=== PATIENT | female | born 1975 | race Caucasian/White ===

== ENCOUNTER 2016-06-16 23:58 | Emergency (ER) | payer MEDICAID ==
[~2016-06-16 23:58] MED LIST: AMOXIL500 M PO; ASPIRIN81 MG PO; ATIVAN1 MG PO; BAYER CHILDREN'81 MG PO; BAYER81 MG PO; BENADRYL25 MG PO; BENADRYL25 MG/TA1 PO; BENTROPINE PO; BENZTROPINE MESY1 MG PO; BL MAXEPA CAPSU1 CAP PO; CEBERCLON1 MG PO; CELEXA PO; CELEXA40 MG PO; CLONAZEPAM1 M1 PO; CLONAZEPAM1 M2 PO; CLONAZEPAM1 MG PO; COGENTIN1 MG/TA1 PO; DIPHENOXYLATE 2.1 EA PO; FIBER PILL PO; FIBER THERAPY PO; FIBER THERAPY500 M1 PO; FUROSEMIDE20 M1 PO; IBUPROFEN800 MG PO; IRON325 ( 65 ) PO; KEFLEX500 M4 PO; LAMICTAL150 MG PO; LAMICTAL200 M1 PO; LAMICTAL200 M2 PO; LAMICTAL200 MG PO; LASIX20 MG PO; LEVOXYL50 MCG PO; LORAZEPAM1 M1 PO; LORAZEPAM1 MG PO; LOW DOSE ASPIRI81 M2 PO; MOTRIN800 MG PO; NAPROSYN500 MG PO; NEOMYCIN POLYMY OT; NORCO 10/325 TA1 TAB PO; NORCO 5-325 TA1 EACH PO; NORCO 5/325 TAB1 TAB PO; NORFLEX PO; NYSTATIN1 EAC1 MC; NYSTATIN1 EACH MC; NYSTATIN10 GM PO; NYSTOP TP; NYSTOP15 GM TP; PROMETHAZINE V240 ML PO; PROMETHAZINE25 MG PO; RANITIDINE HCL150 MG PO; RASPBERRY KETONES PO; SEROQUEL XR300 MG PO; SEROQUEL200 MG PO; SEROQUEL25 MG PO; SEROQUEL400 MG PO; SEROQUEL50 M1 PO; SEROQUEL50 MG PO; SYNTHROID50 MCG PO; TRAMADOL HCL50 MG PO; TUMS CALCIUM F750 MG PO; TYLENOL325 MG PO; ULTRAM50 MG PO; WATER PILL PO; ZANTAC150 MG PO; ZITHROMAX250 MG PO; ZOFRAN ODT4 MG/UDTAB PO; [UNRECOGNIZED DRUG - OTHER]; [UNRECOGNIZED DRUG - OTHER] PO; [UNRECOGNIZED DRUG - REMARK]; [UNRECOGNIZED DRUG - REMARK] PO
[2016-06-17] MEDS ORDERED: CIPRO HC OTIC S10 M1 EACH EAR (00:19)
[2016-06-17] MEDS ORDERED: [UNRECOGNIZED DRUG - OTHER] (00:20)
[2016-06-17] MEDS ORDERED: HYDROCODON-ACE1 EA16 PO (00:23)
[2016-06-17] MEDS ORDERED: CALCIUM + VITA1 EAC4 PO (00:24)
[2016-06-17] MEDS ORDERED: COCONUT OIL1000 M1 PO (00:25)
[2016-06-17] MEDS ORDERED: ALIVE WOMEN'S1 EAC1 PO (00:25)
[2016-06-17] MEDS ORDERED: PROAIR HFA8.5 GM INH (02:26)
[2016-06-17] MEDS ORDERED: AZITHROMYCIN250 M1 PO (02:26)
[2016-06-17] MEDS ORDERED: PREDNISONE10 M1 PO (02:26)
== END 2016-06-17 02:55 ==
LOC: EDMED 23:58
DX: J40 Bronchitis, not specified as acute or chronic (principal); F20.9 Schizophrenia, unspecified; E66.01 Morbid (severe) obesity due to excess calories; Z79.899 Other long term (current) drug therapy
CPT/HCPCS: J2060

== ENCOUNTER 2016-08-30 20:05 | Emergency (ER) | payer MEDICAID ==
[~2016-08-30 20:05] MED LIST changes: +ALIVE WOMEN'S1 EAC1 PO; +AZITHROMYCIN250 M1 PO; +CALCIUM + VITA1 EAC4 PO; +CIPRO HC OTIC S10 M1 EACH EAR; +COCONUT OIL1000 M1 PO; +HYDROCODON-ACE1 EA16 PO; +PREDNISONE10 M1 PO; +PROAIR HFA8.5 GM INH; +[UNRECOGNIZED DRUG - OTHER]
== END 2016-08-30 21:45 ==
LOC: EDMED 20:05
DX: S70.02XA Contusion of left hip, initial encounter (principal); E66.01 Morbid (severe) obesity due to excess calories; F20.9 Schizophrenia, unspecified; Z79.899 Other long term (current) drug therapy; W07.XXXA Fall from chair, initial encounter; Y92.39 Other specified sports and athletic area as the place of occurrence of the external cause